=== PATIENT | female | born 1955 | race Caucasian/White ===

== ENCOUNTER → 2019-01-26 | Outpatient (CLI) | payer MEDICARE, OTHER | END | disposition home or self-care (01) | LOC: PCVCCLINIC 13:40 | PROVIDERS: ATTEND Internal Medicine | DX: I10 Essential (primary) hypertension (principal); E78.00 Pure hypercholesterolemia, unspecified; R07.89 Other chest pain; E11.9 Type 2 diabetes mellitus without complications; R00.2 Palpitations | CPT/HCPCS: 93005; G0463 ==

== ENCOUNTER → 2019-02-04 | Outpatient (CLI) | payer MEDICARE, OTHER ==
[~2019-02-04] MED LIST: REGADENOSON 0.4 MG/5 ML DISP.SYRIN. IV ONE
--- NOTE | 2019-02-04 12:01 | PCVCIMAG ---
APPROVED REPORT Study performed: 02/04/2019 08:23:49 EXAM: Comprehensive 2D, Doppler, and color-flow Echocardiogram Patient Location: Echo lab Status: routine BSA: 1.80 HR: 71 bpmBP: 152/76 mmHg Rhythm: NSR Other Information Study Quality: Adequate Risk Factors: Cardiac Risk Factors: HTN Indications Diabetes Chest Pain 2D Dimensions IVSd: 13.74 (7-11mm) LVDd: 42.53 mm PWd: 13.16 (7-11mm)Ascending Ao: 33.35 (22-36mm) LVDs: 29.62 (25-40mm) Left Atrium: 38.83 (27-40mm) Aortic Root: 30.97 mm LV Single Plane 4CH: 64.68 % LV Single Plane 2CH: 72.85 % Biplane EF: 68.3 % Volumes Left Atrial Volume (Systole) Single Plane 4CH: 50.69 mLSingle Plane 2CH: 64.65 mL LA ESV Index: 32.00 mL/m2 Aortic Valve AoV Peak Chris.: 1.47 m/s AO Peak Gr.: 8.59 mmHgLVOT Max P.62 mmHg LVOT Max V: 1.07 m/s Mitral Valve E/A Ratio: 1.4 MV Decel. Time: 250.31 ms MV E Max Chris.: 0.90 m/s MV A Chris.: 0.64 m/s IVRT: 76.12 ms Pulmonary Valve PV Peak Chris.: 1.04 m/sPV Peak Gr.: 4.29 mmHg Pulmonary Vein P Vein S: 0.36 m/sP Vein A: 0.31 m/s P Vein D: 0.56 m/sP Vein A Dur.: 110.7 msec P Vein S/D Ratio: 0.64 Tricuspid Valve TR Peak Chris.: 2.46 m/s TR Peak Gr.: 24.26 mmHg TV Vmax: 0.72 m/s Left Ventricle The left ventricle is normal size. There is normal LV segmental wall motion. Mild concentric left ventricular hypertrophy. Left ventricular systolic function is normal. The left ventricular ejection fraction is within the normal range. LVEF is 60-65%. Grade II - pseudonormal filling dynamics. Right Ventricle The right ventricle is normal size. The right ventricular systolic function is normal. Atria The left atrium size is normal. The right atrium size is normal. Aortic Valve The aortic valve is normal in structure. No aortic regurgitation is present. There is no aortic valvular stenosis. Mitral Valve The mitral valve is normal in structure. Mild mitral regurgitation. No evidence of mitral valve stenosis. Tricuspid Valve The tricuspid valve is normal in structure. Mild tricuspid regurgitation with PAP of 31 mmHg. Pulmonic Valve The pulmonary valve is normal in structure. There is no pulmonic valvular regurgitation. Great Vessels The aortic root is normal in size. IVC is normal in size and collapses >50% with inspiration. Pericardium There is no pericardial effusion. There is no pleural effusion. <Conclusion> The left ventricle is normal size. LVEF is 60-65%. The aortic valve is normal in structure. The mitral valve is normal in structure. Mild mitral regurgitation. The tricuspid valve is normal in structure. Mild tricuspid regurgitation with PAP of 31 mmHg. The pulmonary valve is normal in structure.
--- NOTE | 2019-02-04 15:02 | PCVCIMAG ---
APPROVED REPORT Imaging Protocol: Rest Tc-99m/Stress Tc-99m 1 day Study performed: 02/04/2019 10:00:13 Indication: Chest pain Patient Location: Out-Patient Stress Tech: MERNA Mackey Stress Nurse: Suki Gutierrez RN NM Tech:MERNA Mackey Ht: 5 ft 2 in Wt: 179 lbs BSA: 1.82 m2 HR: 69 bpm BP: 153/66 mmHg BMI: 32.73 Rhythm: Sinus Rhythm, 1st degree AV block Medical History Medical History: Hyperlipidemia, HTN, Diabetic � Noninsulin Allergies: No known drug allergies Cardiac Risk Factors: Age, FHX of CAD Pretest Chest Pain Characteristics: No chest pain Resting Data Rest SPECT myocardial perfusion imaging was performed in supine position 45 minutes following the intravenous injection of 9.9 mCi of Tc-99m Sestamibi. Time of rest injection: 929 Date: 02/04/2019 Administration Route: IV Administration Site: Right Arm Pharmacologic Stress Pharmacologic stress test was performed by injecting Regadenoson 0.4 mg IV push over 10-15 seconds immediately followed by the intravenous injection of 35.8 mCi of Tc-99m Sestamibi. Time of stress injection: 1115 Administration Route: IV Administration Site: Right Arm Gated Stress SPECT was performed 45 minutes after stress injection. The images were gated to evaluate regional wall motion and calculate left ventricular ejection fraction. Stress Test Details Stress Test: Pharmacologic stress testing performed using 0.4 mg of regadenoson per 5 mL given IV over 10 seconds. Reason for pharmacologic stress test: physical limitation, knee issues. HRMax Heart Rate (APMHR): 158 bpm Resting HR: 69 bpmTarget HR (85% APMHR): 134 bpm Max HR Achieved: 95 bpm % of APMHR: 60 Recovery HR: 88 bpm BP Resting BP: 153/66 mmHg Max BP: 149/65 mmHg Recovery BP: 130/63 mmHg ECG Resting ECG: Sinus Rhythm, 1st degree AV block Stress ECG: Sinus Rhythm Arrhythmia: None Recovery ECG: Sinus Rhythm Clinical Reason for Termination: Completed protocol Stress Symptoms: Dyspnea Symptoms resolved with caffeine. Stress ECG Conclusion 1. adequate response to iv lexiscan 2. inadequate heart rate for ecg diagnosis Study Data Post stress, the left ventricular ejection was 73%.. SSS: 2 SRS: 1 SDS: 2 TID = 1.03. Perfusion There is a large area of moderately reduced uptake in the entire segment of the anterior wall which is seen on the stress images as well as the resting images. This area thickens and moves normally and is most consistent with attenuation artifact. Wall Motion Normal left ventricular wall motion. Nuclear Conclusion ECG Findings: non-diagnostic Clinical Findings: negative for ischemia Nuclear Findings: negative for ischemia Exercise Capacity: not assessed Left Ventricular Function: normal 1. low risk study 2. post stress lvef 73% without wall motion abnormalities <Conclusion> 1. adequate response to iv lexiscan 2. inadequate heart rate for ecg diagnosis
== END | disposition home or self-care (01) ==
LOC: PCVCIMAG 08:47
PROVIDERS: ATTEND Internal Medicine
DX: I08.1 Rheumatic disorders of both mitral and tricuspid valves (principal); R07.9 Chest pain, unspecified; E11.9 Type 2 diabetes mellitus without complications
CPT/HCPCS: 78452; 93017; 93306; A9500; J2785